=== PATIENT | female | born 1965 | race Caucasian/White ===

== ENCOUNTER 2023-06-22 17:30 | Emergency (ER) | payer OTHER ==
[~2023-06-22] VITALS: Ht 154.9 cm; Wt 135.2 kg
[2023-06-22] MEDS ORDERED: HYDROCODONE/APAP 10/325MG TABLET PO ONE (18:00)
[2023-06-22] MEDS ORDERED: HYDROCODONE/APAP 10/325MG TABLET ONE (18:18)
[2023-06-22] MEDS ORDERED: MORPHINE SULFATE 8 MG/ML VIAL IM ONE (20:00)
[2023-06-22] MEDS ORDERED: HYDR-3972 PO (20:09)
[2023-06-22] MEDS ORDERED: IBUP-1953 PO (20:09)
[2023-06-22] MEDS ORDERED: MORPHINE SULFATE INJ 4 MG/ML DISP.SYRIN ONE (20:13)
[2023-06-22 20:41] VITALS: BP 162/73; TEMP 98.1; O2SAT 97
[2023-06-23] MEDS ORDERED: OXYC10TA49 PO ×3 (10:08→10:12)
[2023-06-23] MEDS ORDERED: HYDR-3980 PO (10:42)
== END 2023-06-22 20:42 | disposition home or self-care (01) ==
LOC: ER 17:39
DX: M54.42 Lumbago with sciatica, left side (principal); I48.91 Unspecified atrial fibrillation
CPT/HCPCS: 99285; 72131; 96372; J2270 ×2